=== PATIENT | female | born 1965 | race Caucasian/White ===

== ENCOUNTER 2019-02-13 09:57 | Emergency (ER) | payer OTHER ==
[~2019-02-13] VITALS: Ht 162.6 cm; Wt 79.4 kg
[~2019-02-13 09:57] MED LIST: Ativan0.5 MG PO; CONEST.625 PO; CONEST.9 PO; Crutch1 EACH MISC; DOCSEN PO; DULO60 PO; ELET40TA PO; HYDACE10B PO; HYDACE5 PO; HYDMOR4 PO; IBUP600 PO; IBUP800 PO; LEVO750 PO; META400 PO; NAPR500 PO; Norco 10-325 T1 EACH PO; OXYACE5T PO; SULTRIDS PO; TEMA15 PO; TRAM50 PO; VICODIN HP 10-1 EACH PO
[2019-02-13] MEDS ORDERED: ONDA4ODT MM (11:32)
== END 2019-02-13 12:24 | disposition home or self-care (01) ==
LOC: ER 09:57
DX: R51 Headache (principal); F17.200 Nicotine dependence, unspecified, uncomplicated; Z87.01 Personal history of pneumonia (recurrent); Z79.899 Other long term (current) drug therapy
CPT/HCPCS: 96361; 96374; 96375; 99283-25; J0780; J1200; J1885; J7120

== ENCOUNTER 2019-03-25 16:04 | Emergency (ER) | payer OTHER ==
[~2019-03-25] VITALS: Ht 162.6 cm; Wt 79.4 kg
[~2019-03-25 16:04] MED LIST changes: +ONDA4ODT MM
[2019-03-25] MEDS ORDERED: GABA100 PO (17:45)
[2019-03-25] MEDS ORDERED: Metformin HCl1000 MG (17:46)
[2019-03-25] MEDS ORDERED: SYNTHROID75 MCG PO (17:46)
[2019-03-25] MEDS ORDERED: DULO30 PO (17:46)
[2019-03-25] MEDS ORDERED: Cheratussin AC118 ML PO (18:19)
[2019-03-25] MEDS ORDERED: Zithromax250 MG PO (18:19)
== END 2019-03-25 19:03 | disposition home or self-care (01) ==
LOC: ER 16:04
DX: J44.1 Chronic obstructive pulmonary disease with (acute) exacerbation (principal); M79.644 Pain in right finger(s); Z79.899 Other long term (current) drug therapy; Z79.84 Long term (current) use of oral hypoglycemic drugs; F17.200 Nicotine dependence, unspecified, uncomplicated; G43.909 Migraine, unspecified, not intractable, without status migrainosus; W23.1XXA Caught, crushed, jammed, or pinched between stationary objects, initial encounter
CPT/HCPCS: 29130; 71046; 73130; 99283-25

== ENCOUNTER 2019-04-24 17:53 | Emergency (ER) | payer OTHER ==
[~2019-04-24] VITALS: Ht 162.6 cm; Wt 77.1 kg
[~2019-04-24 17:53] MED LIST changes: +Cheratussin AC118 ML PO; +DULO30 PO; +GABA100 PO; +Metformin HCl1000 MG; +SYNTHROID75 MCG PO; +Zithromax250 MG PO
[2019-04-24] MEDS ORDERED: INSULANPEN SC (18:35)
[2019-04-24] MEDS ORDERED: OMEPRAZOLE20 MG PO (18:35)
[2019-04-24] MEDS ORDERED: ONDA4ODT MM (18:52)
== END 2019-04-24 19:10 | disposition home or self-care (01) ==
LOC: ER 17:53
DX: S09.90XA Unspecified injury of head, initial encounter (principal); F17.200 Nicotine dependence, unspecified, uncomplicated; Z87.01 Personal history of pneumonia (recurrent); Z79.4 Long term (current) use of insulin; W06.XXXA Fall from bed, initial encounter
CPT/HCPCS: 99283; A9270

== ENCOUNTER 2021-01-17 23:55 | Emergency (ER) | payer OTHER ==
[~2021-01-17] VITALS: Ht 162.6 cm; Wt 79.4 kg
[~2021-01-17 23:55] MED LIST changes: +ACET500 PO; +INSULANPEN SC; +METH10 PO; +OMEPRAZOLE20 MG PO; +Tamiflu75 MG PO
[2021-01-18] MEDS ORDERED: Premarin0.3 MG PO (00:07)
[2021-01-18] MEDS ORDERED: BASAGLAR K100 UNIT/8 (00:07)
[2021-01-18] MEDS ORDERED: ESTRADIOL42.5 GM VAG (00:07)
[2021-01-18] MEDS ORDERED: CYCLOBENZAPRINE (00:07)
[2021-01-18] MEDS ORDERED: Ventolin/Prove6.7 GM (00:08)
[2021-01-18] MEDS ORDERED: DULOXETINE HCL60 M1 PO (00:08)
== END 2021-01-18 01:56 | disposition home or self-care (01) ==
LOC: ER 23:55
DX: B34.9 Viral infection, unspecified (principal); F17.200 Nicotine dependence, unspecified, uncomplicated; Z79.899 Other long term (current) drug therapy; Z20.822 Contact with and (suspected) exposure to COVID-19
CPT/HCPCS: 99283

== ENCOUNTER → 2021-11-24 | Outpatient (CLI) | payer OTHER ==
[~2021-11-24] MED LIST changes: +BASAGLAR K100 UNIT/8; +CYCLOBENZAPRINE; +DULOXETINE HCL60 M1 PO; +ESTRADIOL42.5 GM VAG; +Ferrous Sulfat325 MG PO; +PEPCID40 MG PO; +Premarin0.3 MG PO; +Ventolin/Prove6.7 GM
[2021-12-01 07:09] LABS: COTININE <10.0 ng/mL (.); NICOTINE <10.0 ng/mL (.)
== END ==
LOC: LAB SHORT 15:10 → LAB 15:10
PROVIDERS: Surgery
DX: F17.200 Nicotine dependence, unspecified, uncomplicated (principal)
CPT/HCPCS: G0480

== ENCOUNTER 2021-12-29 06:13 | Day surgery (SDC) | payer OTHER ==
[~2021-12-29] VITALS: Ht 162.6 cm; Wt 87.5 kg
[~2021-12-29 06:13] MED LIST changes: +ATOR40TA PO; +ESCI20 PO; +GABA300 PO; +Glucophage 850850 MG PO; +LEVSOD75 PO; +NARCAN4 M1; +OMEP20ER PO; +RIZATRIPTAN10 MG SL; +SYMBICORT 80-10.2 GM
== END 2021-12-29 08:14 | disposition home or self-care (01) ==
LOC: ORSCSDS 06:13 → ORSCMMR 07:30 → ORSCSDS 08:00 → ORSCMMR 08:00 → ORSCSDS 08:14
PROVIDERS: Surgery
PROC: 0DB68ZX Excision of Stomach, Via Natural or Artificial Opening Endoscopic, Diagnostic (ICD-10-PCS; principal; 2021-12-29 07:30)
DX: K21.9 Gastro-esophageal reflux disease without esophagitis (principal); R11.2 Nausea with vomiting, unspecified; J44.9 Chronic obstructive pulmonary disease, unspecified; F41.9 Anxiety disorder, unspecified; E11.9 Type 2 diabetes mellitus without complications; E03.9 Hypothyroidism, unspecified; K44.9 Diaphragmatic hernia without obstruction or gangrene; G47.33 Obstructive sleep apnea (adult) (pediatric); F32.A Depression, unspecified; E66.9 Obesity, unspecified; Z68.33 Body mass index [BMI] 33.0-33.9, adult; F19.11 Other psychoactive substance abuse, in remission; Z87.891 Personal history of nicotine dependence; Z79.4 Long term (current) use of insulin; Z79.899 Other long term (current) drug therapy
CPT/HCPCS: 82947; 88305; 88342; A9270; J2704; J7120

== ENCOUNTER → 2022-04-10 | Outpatient (CLI) | payer OTHER ==
[2022-04-10 19:19] LABS: Percent Saturation 15.6 % (15.0-50.0)
== END | disposition home or self-care (01) ==
LOC: LAB SHORT 14:28 → LAB 14:28
PROVIDERS: Internal Medicine Hematology & Oncology
DX: D50.0 Iron deficiency anemia secondary to blood loss (chronic) (principal); E53.9 Vitamin B deficiency, unspecified
CPT/HCPCS: 82607; 82728; 82746; 83540; 83550

== ENCOUNTER 2022-07-06 11:50 | Emergency (ER) | payer OTHER ==
[~2022-07-06] VITALS: Ht 162.6 cm; Wt 88.5 kg
[2022-07-06 12:40] LABS: BASOPHILS ABSOLUTE AUTO 0.06 K/mm3 (0.00-0.23); BASOPHILS PERCENT AUTO 1 % (0-2); EOSINOPHILS ABSOLUTE AUTO 0.17 K/mm3 (0.00-0.68); EOSINOPHILS PERCENT AUTO 3 % (0-6); Hematocrit 37.5 % (33.0-51.0); Hemoglobin 12.1 g/dL (11.5-16.0); IMMATURE GRAN ABSOLUTE AUTO 0.02 K/mm3 (0.00-0.10); IMMATURE GRAN PERCENT AUTO 0 % (0-1); LYMPHOCYTES ABSOLUTE AUTO 2.34 K/mm3 (0.84-5.20); LYMPHOCYTES PERCENT AUTO 37 % (21-46); MONOCYTES ABSOLUTE AUTO 0.32 K/mm3 (0.16-1.47); MONOCYTES PERCENT AUTO 5 % (4-13); Mean Corpuscular HGB 27.4 pg (26.0-34.0); Mean Corpuscular HGB Conc 32.3 g/dL (31.5-36.5); Mean Corpuscular Volume 85 fL (80-100); Mean Platelet Volume 9.8 fL (9.1-12.4); NEUTROPHILS ABSOLUTE AUTO 3.47 K/mm3 (1.96-9.15); NEUTROPHILS PERCENT AUTO 54 % (41-73); Platelet Count 266 K/mm3 (150-400); RDW Coefficient Variation 13.6 % (11.7-14.2); Red Blood Cell Count 4.41 M/mm3 (3.80-5.20); White Blood Cell Count 6.38 K/mm3 (4.00-11.30)
[2022-07-06 13:01] LABS: Albumin, Blood 3.5 g/dL (3.4-5.0); Albumin/Globulin Ratio 0.9 (0.8-1.8); Bilirubin, Total 0.3 mg/dL (0.1-1.0); Bun/Creatinine Ratio 17.3 (12.0-20.0); Calcium, Blood 8.7 mg/dL (8.5-10.1); Creatinine, Blood 0.87 mg/dL (0.40-1.00); Globulin, Blood 3.7 g/dL (2.2-4.0); Potassium, Blood 4.7 mmol/L (3.5-5.5); Total Protein, Blood 7.2 g/dL (6.4-8.2)
[2022-07-06] MEDS ORDERED: CEPH500 PO (15:25)
== END 2022-07-06 15:37 | disposition home or self-care (01) ==
LOC: ER 11:50
PROVIDERS: Physician Assistant
DX: L03.115 Cellulitis of right lower limb (principal); L03.116 Cellulitis of left lower limb; F17.200 Nicotine dependence, unspecified, uncomplicated; Z79.899 Other long term (current) drug therapy; Z79.890 Hormone replacement therapy; Z79.84 Long term (current) use of oral hypoglycemic drugs
CPT/HCPCS: 36415; 80053; 83880; 85025; 93005; 93010; 93970

== ENCOUNTER 2022-10-21 19:01 | Emergency (ER) | payer OTHER ==
[~2022-10-21] VITALS: Ht 162.6 cm; Wt 90.7 kg
[~2022-10-21 19:01] MED LIST changes: +CEPH500 PO
[2022-10-21 22:30] VITALS: BP 146/86
== END 2022-10-21 22:44 | disposition home or self-care (01) ==
LOC: ER 19:01
DX: R51.9 Headache, unspecified (principal); H92.01 Otalgia, right ear; E11.9 Type 2 diabetes mellitus without complications; F17.200 Nicotine dependence, unspecified, uncomplicated; Z79.51 Long term (current) use of inhaled steroids; Z79.84 Long term (current) use of oral hypoglycemic drugs
CPT/HCPCS: 96374; 96375; 99283-25; J0780; J1200; J1885; J7030

== ENCOUNTER → 2022-11-22 | Outpatient (CLI) | payer OTHER ==
[2022-11-22 19:53] LABS: Percent Saturation 16.4 % (15.0-50.0)
== END | disposition home or self-care (01) ==
LOC: LAB SHORT 16:07 → LAB 16:07
PROVIDERS: Internal Medicine Hematology & Oncology
DX: D50.0 Iron deficiency anemia secondary to blood loss (chronic) (principal)
CPT/HCPCS: 82728; 83540; 83550

== ENCOUNTER → 2023-02-05 | Outpatient (CLI) | payer OTHER | LOC: LAB SHORT 17:20 → LAB 17:20 | DX: E11.9 Type 2 diabetes mellitus without complications (principal) | CPT/HCPCS: 82043 ==

== ENCOUNTER 2023-02-19 06:18 | Observation (INO) | payer OTHER ==
[~2023-02-19] VITALS: Ht 160 cm; Wt 84.5 kg
[2023-02-19] VITALS (19 sets, daily range): BP systolic 125–151; BP diastolic 80–97
[2023-02-19] MEDS ORDERED: PANT20 PO (06:32)
[2023-02-19] MEDS ORDERED: METH40 PO (06:34)
--- NOTE | 2023-02-19 08:05 | NUR ---
02/19/23 0805 Anu Santamaria NO PREOP ANTIBIOTICS ORDERED PER .
--- NOTE | 2023-02-19 15:49 | NUR ---
PT POST HIATAL HERNIA REPAIR WITH FUNDOPLICATION PT ARRIVED IN THE ROOM AT 1130A, REPORT RECEIVED FROM RO HARRISON FROM PACU. PT REMAINED DROWSY UPON ARRIVAL WAKES UP AND WAS ABLE TO ANSWER QUESTIONS APPROPRIATELY. PT HAS 4 ABD INCISION SITES MIKEL CDI, ABD TENDER HYPOACTIVE BT PT WAS C/O NAUSEA MEIDCATED X1, PT KEPT NPO 4 HRS POST OP, PT HAS BEEN SLEEPING SINCE TRANSFER WAKES UP WTIH VERBAL STIMULI. NS STARTED AT 75MLS/HR. TO START PT ON CLEAR LIQUID DIET FOR DINNER TOLERATED THEN ADVANCE TO FULL LIQUID IN AM. VITALS HAS BEEN STABLE. NO OTHER ISSUES AT THIS TIME, CALL LIGHTS IN REACH WILL CONTINUE TO MONITOR
--- NOTE | 2023-02-19 18:22 | NUR ---
PT SUMMARY: PT DIET RESUMED 4 HRS POST OP ON CLEAR LIQUIDS, PT OFFERED ZOFRAN BEFORE EATING DINNER TO PREVENT NAUSEA, ZOFRAN WAS GIVEN WHEN PT STARTED FINISHING UP HER JELLO PT STARTED C/O OF GAGGING PT STATED "ITS COMING BACK UP" PT DENIES NAUSEA JUST REGURGITATION, INDUSTRIAL INSULATOR CALLED DR DAI TO ORDER REGLAN ONE TIME DOSE AWAITING FOR ORDER AT THIS TIME. PT HAD SMALL AMOUNT OF EMESIS (JELLO) MOSTLY SPIT, GAGGING EVENTUALLY HAD STOPPED. PT NOW SITTING ON THE SIDE OF THE BED PT STATED SHE FEELS MUCH BETTER SITTING UP. PT GOT UP IN THE BEDSIDE COMMODE SBA WAS C/O REALLY BAD PAIN WHEN GETTING BACK IN BED OXY 5MG WAS GIVEN AND WAS EFFECTIVE. PT HASNT PASSED GAS OF TIME EXPECTED. NO OTHER ISSUES AT THIS TIME, VITALS REMAINED STABLE. WILL REPORT TO ONCOMING SHIFT
[2023-02-20 03:58] VITALS: BP 120/72
--- NOTE | 2023-02-20 04:28 | NUR ---
SHIFT SUMMARY PT S/P HERNIA REPAIR, SHE HAS RESTED MOST OF THE NIGHT, APPEARED SLEEPING AND COMFORTABLE DURING ROUNDS. PT VERY PAINFUL WITH MOVEMENT. MEDS GIVEN PER EMAR WITH AFFECT. LAP SITES X4 C/D/I. ABD SOFT, TENDER. BOWEL TONES HYPOACTIVE. PT STILL HAS VERY LITTLE APPETITE, AND FEARS GETTING NAUSEATED AGAIN LIKE SHE DID DURING DAYSHIFT. NO VOMITTING THIS SHIFT. IVF INFUSING PER ORDERS. PT HAS VOIDED THIS SHIFT. NO ACUTE CHANGES OVERNIGHT, BED IN LOWEST POSITION, CALL LIGHT WITHIN REACH.
[2023-02-20 05:25] LABS: Hematocrit 39.3 % (33.0-51.0); Hemoglobin 12.4 g/dL (11.5-16.0); Mean Corpuscular HGB 26.8 pg (26.0-34.0); Mean Corpuscular HGB Conc 31.6 g/dL (31.5-36.5); Mean Corpuscular Volume 85 fL (80-100); Mean Platelet Volume 11.6 fL (9.1-12.4); Platelet Count 199 K/mm3 (150-400); RDW Coefficient Variation 14.3 % (11.7-14.2); RDW Standard Deviation 44.3 fL (35.1-46.3); Red Blood Cell Count 4.62 M/mm3 (3.80-5.20); White Blood Cell Count 8.34 K/mm3 (4.00-11.30)
[2023-02-20 07:16] VITALS: BP 124/75
--- NOTE | 2023-02-20 15:03 | NUR ---
Pt. is awake in bed and welcomes my visit. Pt. displays evidence of great discomfort. With empathy and a calming presence faciltate a brief life review. Pt. verbalizes that she had freinds visiting earlier in the day. Pt. continues to display evidence of pain and discomfort so this category consultant kept the visit short. Prayed with Pt. Pt. verbalized gratitude for the spiritual care visit.
[2023-02-20 15:55] VITALS: BP 131/73
--- NOTE | 2023-02-20 18:10 | NUR ---
SHIFT SUMMARY: POD 1 LAP PARAESOPHAGEAL HERNIA REPAIR WITH FUNDOPLICATION PATIENT IS A&OX4. VS ARE WNL AND IS ON RA. PAIN IS MANAGED WITH 10 OXY AND HER METHADOSE. HER ABD HAS X4 LAP SITES THAT ARE C/D/I. SHE IS PASSING GAS AND IS VOIDING. SHE IS A SBA WITH FWW TO THE BATHROOM AND BACK TO BED. SHE IS TOLERATING SMALL AMOUNTS OF PO INTAKE. PATIENT WAS SLEEPY FOR MOST OF THE DAY, AND WHEN THIS NURSE TRIED TO ENCOURAGE WALKING IN THE HALLWAYS EITHER SHE WAS TOO PAINFUL OR TOO SLEEPY. THIS NURSE ENCOURAGED PATIENT TO WALK LATER TONIGHT IF POSSIBLE AND PATIENT RESPONDED "I WILL TRY". SHE IS LAYING IN BED WITH CALL LIGHT IN REACH.
[2023-02-20 19:16] VITALS: BP 119/69
[2023-02-21 02:47] VITALS: BP 151/74
[2023-02-21 03:29] VITALS: BP 113/70
--- NOTE | 2023-02-21 05:51 | NUR ---
SHIFT SUMMARY NO ACUTE CHANGES TO REPORT OVERNIGHT, PT STILL PAINFUL WITH MOVEMENT. PT HAS BEEN DROWSY, APPEARED SLEEPING DURING NURSE ROUNDING. LAP SITES TO ABD C/D/I, PT PASSING GAS AND CONTINUES TO TOLEATE PO INTAKE. VITALS STABLE. BED IN LOWEST POSITION, CALL LIGHT WITHIN REACH.
[2023-02-21 07:16] VITALS: BP 150/86
[2023-02-21] MEDS ORDERED: OXYC5 PO (12:55)
--- NOTE | 2023-02-21 13:12 | NUR ---
DISCHARGE NOTE: PATIENT WAS EDUCATED ON DISCHARGE INSTRUCTIONS. SHE VERBALIZED UNDERSTANDING OF INSTRUCTIONS AND HAD NO FURTHER QUESTIONS AT THIS TIME. BOTH OF HER IV'S WERE TAKEN OUT AND WNL. PAIN IS MANAGED WITH ORAL PAIN MEDICATIONS. HER ABD HAS 4 LAP SITES WITH WOUND GLUE THAT ARE C/D/I. DENIES ANY NAUSEA OR VOMITING. SHE IS TOLERATING HER FULL LIQUIDS DIET WITH NO MEAT/CARBS/CARBONATED DRINKS/SWEETS. PATIENT IS VOIDING AND PASSING GAS. PATIENT IS A SBA IN THE ROOM. SHE WAS ABLE TO SHOWER AND IS NOW DRESSED WITH HER PERSONAL ITEMS IN THE ROOM GATHERED. PATIENT IS AWAITING FOR HER RIDE TO COME PICK HER UP.
--- NOTE | 2023-02-21 14:22 | NUR ---
DISCHARGE NOTE: PATIENT IS BEING WHEELCHAIRED OUT TO HER FRIENDS CAR TO BE TAKEN HOME. PATIENT HAS ALL OF HER PERSONAL BELONGINGS WITH HER.
== END 2023-02-21 14:31 | disposition home or self-care (01) ==
LOC: SURS 06:18 → PRE IP 06:18 → SURS 07:31
PROVIDERS: ADMIT Surgery
PROC: 8E0W4CZ Robotic Assisted Procedure of Trunk Region, Percutaneous Endoscopic Approach (ICD-10-PCS; principal; 2023-02-19 07:30)
PROC: 0BQT4ZZ Repair Diaphragm, Percutaneous Endoscopic Approach (ICD-10-PCS; principal; 2023-02-19 07:30)
DX: K21.9 Gastro-esophageal reflux disease without esophagitis (principal); K44.9 Diaphragmatic hernia without obstruction or gangrene; E11.9 Type 2 diabetes mellitus without complications; E78.5 Hyperlipidemia, unspecified; E03.9 Hypothyroidism, unspecified; F32.9 Major depressive disorder, single episode, unspecified
CPT/HCPCS: 36415; 82947; 85027; 94640; 94664; 94760; 96372; 96374; 96375; 96376; A9270; G0378; J1100; J1650; J1815; J2250; J2371; J2405; J2704; J2765; J3010; J7120

== ENCOUNTER 2023-10-07 18:53 | Emergency (ER) | payer OTHER ==
[~2023-10-07] VITALS: Ht 162.6 cm; Wt 71.7 kg
[~2023-10-07 18:53] MED LIST changes: +METH40 PO; +OXYC5 PO; +PANT20 PO
[2023-10-07] MEDS ORDERED: Ondansetron HCl 2 MG / ML 2ML Vial IV ONE (19:35)
[2023-10-07] MEDS ORDERED: HYDROmorphone HCl/Pf 1MG SYR IV ONE (19:35)
[2023-10-07] MEDS ORDERED: NS 1,000 ML IV SCH (19:35)
[2023-10-07 19:44] LABS: BASOPHILS ABSOLUTE AUTO 0.05 K/mm3 (0.00-0.23); BASOPHILS PERCENT AUTO 1 % (0-2); EOSINOPHILS ABSOLUTE AUTO 0.17 K/mm3 (0.00-0.68); EOSINOPHILS PERCENT AUTO 2 % (0-6); Hematocrit 39.2 % (33.0-51.0); Hemoglobin 12.7 g/dL (11.5-16.0); IMMATURE GRAN ABSOLUTE AUTO 0.01 K/mm3 (0.00-0.10); IMMATURE GRAN PERCENT AUTO 0 % (0-1); LYMPHOCYTES ABSOLUTE AUTO 2.95 K/mm3 (0.84-5.20); LYMPHOCYTES PERCENT AUTO 43 % (21-46); MONOCYTES ABSOLUTE AUTO 0.36 K/mm3 (0.16-1.47); MONOCYTES PERCENT AUTO 5 % (4-13); Mean Corpuscular HGB 27.7 pg (26.0-34.0); Mean Corpuscular HGB Conc 32.4 g/dL (31.5-36.5); Mean Corpuscular Volume 85 fL (80-100); Mean Platelet Volume 11.4 fL (9.1-12.4); NEUTROPHILS PERCENT AUTO 49 % (41-73); Platelet Count 226 K/mm3 (150-400); RDW Coefficient Variation 13.1 % (11.7-14.2); RDW Standard Deviation 40.6 fL (35.1-46.3); Red Blood Cell Count 4.59 M/mm3 (3.80-5.20); White Blood Cell Count 6.94 K/mm3 (4.00-11.30)
[2023-10-07 19:58] LABS: Source, Urine Clean Catch
[2023-10-07 20:08] LABS: Bilirubin, Urine Neg (Neg); Blood, Urine 2+ (Neg); Glucose Qualitative, Urine 2+ (Neg); Ketones, Urine 1+ (Neg); Leukocyte Esterase, Urine 1+ (Neg); Nitrite, Urine Neg (Neg); Protein, Urine Neg (Neg); Urobilinogen, Urine NORM (Normal)
[2023-10-07 20:14] LABS: Appearance, Urine Clear (Clear); Color, Urine Yellow (P-Yellow)
[2023-10-07 20:18] LABS: Amorphous Light (0-Heavy); Bacteria Few /hpf; Red Blood Cells, Urine 0-2 /hpf (0-2); Squamous Epithelial Cells Few /hpf (Few); White Blood Cells, Urine 0-2 /hpf (0-5)
[2023-10-07 20:31] LABS: Albumin, Blood 3.6 g/dL (3.4-5.0); Albumin/Globulin Ratio 1.1 (0.8-1.8); Bilirubin, Total 0.2 mg/dL (0.1-1.0); Bun/Creatinine Ratio 25.3 (12.0-20.0); Calcium, Blood 9.3 mg/dL (8.5-10.1); Creatinine, Blood 0.95 mg/dL (0.40-1.00); Globulin, Blood 3.4 g/dL (2.2-4.0); Potassium, Blood 3.8 mmol/L (3.5-5.5)
[2023-10-07] MEDS ORDERED: LORazepam 2 MG/ML 1ML Injection IV ONE (20:55)
[2023-10-07 22:24] VITALS: BP 127/82
== END 2023-10-07 22:25 | disposition home or self-care (01) ==
LOC: ER 18:53
PROVIDERS: Emergency Medicine
DX: R10.31 Right lower quadrant pain (principal); E11.9 Type 2 diabetes mellitus without complications; Z79.890 Hormone replacement therapy; Z79.51 Long term (current) use of inhaled steroids; Z79.84 Long term (current) use of oral hypoglycemic drugs; Z79.899 Other long term (current) drug therapy
CPT/HCPCS: 74177; 80053; 81001; 83605; 83690; 85025; 96361; 96374-59; 96375; 99285-25; J1170; J2405; J7030; Q9967

== ENCOUNTER → 2024-02-14 | Outpatient (CLI) | payer OTHER ==
[2024-02-14 19:30] LABS: Adenovirus F 40/41 Not Detected (NOT DETECT); Astrovirus Not Detected (NOT DETECT); Campylobacter Sp Not Detected (NOT DETECT); Cryptosporidium Not Detected (NOT DETECT); Cyclospora Cayetanensis Not Detected (NOT DETECT); E. Coli O157 Not Detected (NOT DETECT); Entamoeba Histolytica Not Detected (NOT DETECT); Enteroaggregative E. coli-EAEC Not Detected (NOT DETECT); Enteropathogenic E. coli-EPEC Not Detected (NOT DETECT); Enterotoxigenic E. coli-ETEC Not Detected (NOT DETECT); Giardia Lamblia Not Detected (NOT DETECT); Norovirus GI/GII Not Detected (NOT DETECT); Plesiomonas Shigelloides Not Detected (NOT DETECT); Rotavirus A Not Detected (NOT DETECT); Salmonella Sp Not Detected (NOT DETECT); Sapovirus Not Detected (NOT DETECT); Shiga Toxin-prod E. coli-STEC Not Detected (NOT DETECT); Shigella/Enteroin E. coli-EIEC Not Detected (NOT DETECT); Vibrio Cholerae Not Detected (NOT DETECT); Vibrio Sp Not Detected (NOT DETECT); Yersinia Enterocolitica Not Detected (NOT DETECT)
[2024-02-18 16:14] LABS: CALPROTECTIN,FECAL 58 ug/g (<=49)
[2024-02-18 16:24] LABS: PANCREATIC ELASTASE,FECAL 38 ug/g (>=100)
== END ==
LOC: LAB SHORT 14:46 → LAB 14:46
PROVIDERS: Family Medicine
DX: R19.7 Diarrhea, unspecified (principal)
CPT/HCPCS: 82653; 83993; 87507

== ENCOUNTER 2024-08-17 20:47 | Emergency (ER) | payer OTHER ==
[~2024-08-17] VITALS: Ht 162.6 cm; Wt 68.0 kg
[2024-08-17 21:10] LABS: BASOPHILS ABSOLUTE AUTO 0.05 K/mm3 (0.00-0.23); BASOPHILS PERCENT AUTO 1 % (0-2); EOSINOPHILS ABSOLUTE AUTO 0.14 K/mm3 (0.00-0.68); EOSINOPHILS PERCENT AUTO 2 % (0-6); Hematocrit 38.7 % (33.0-51.0); Hemoglobin 12.4 g/dL (11.5-16.0); IMMATURE GRAN ABSOLUTE AUTO 0.01 K/mm3 (0.00-0.10); IMMATURE GRAN PERCENT AUTO 0 % (0-1); LYMPHOCYTES ABSOLUTE AUTO 1.63 K/mm3 (0.84-5.20); LYMPHOCYTES PERCENT AUTO 27 % (21-46); MONOCYTES ABSOLUTE AUTO 0.44 K/mm3 (0.16-1.47); MONOCYTES PERCENT AUTO 7 % (4-13); Mean Corpuscular HGB 27.9 pg (26.0-34.0); Mean Corpuscular Volume 87 fL (80-100); NEUTROPHILS ABSOLUTE AUTO 3.81 K/mm3 (1.96-9.15); NEUTROPHILS PERCENT AUTO 63 % (41-73); Platelet Count 255 K/mm3 (150-400); RDW Coefficient Variation 13.4 % (11.7-14.2); RDW Standard Deviation 42.9 fL (35.1-46.3); Red Blood Cell Count 4.44 M/mm3 (3.80-5.20); White Blood Cell Count 6.08 K/mm3 (4.00-11.30)
[2024-08-17 21:44] LABS: Albumin, Blood 3.6 g/dL (3.4-5.0); Bilirubin, Total 0.5 mg/dL (0.1-1.0); Globulin, Blood 3.7 g/dL (2.2-4.0); Potassium, Blood 4.2 mmol/L (3.5-5.5); Total Protein, Blood 7.3 g/dL (6.4-8.2)
[2024-08-17 21:55] LABS: Influenza A, PCR NEGATIVE (NEGATIVE); Influenza B, PCR NEGATIVE (NEGATIVE); Resp Syncytial Virus, PCR NEGATIVE (NEGATIVE); SARS-Cov-2 (COVID-19) PCR, MMC NEGATIVE (NEGATIVE)
[2024-08-17 23:33] LABS: C-Reactive Protein, High Sens. 3.86 mg/dL (0.000-3.000)
[2024-08-17] MEDS ORDERED: Mag Hydrox/AL Hydrox/Simeth 30 ML UDC PO ONE (23:55)
[2024-08-17] MEDS ORDERED: Ipratropium Bromide INH 0.02% 0.5 mg/2.5ML Vial INH SCH (23:55)
[2024-08-17] MEDS ORDERED: Lidocaine 2% Viscous Soln 15 ML UDC PO ONE (23:55)
[2024-08-17] MEDS ORDERED: Albuterol 2.5 MG/3 ML VIAL INH SCH (23:55)
[2024-08-18] MEDS ORDERED: Ketorolac Tromethamine 15mg Vial IM ONE (00:30)
[2024-08-18] MEDS ORDERED: Ketorolac Tromethamine 15mg Vial IV ONE (00:35)
[2024-08-18] MEDS ORDERED: OMEP20ER PO (01:07)
[2024-08-18 01:28] VITALS: BP 117/84
== END 2024-08-18 01:30 | disposition home or self-care (01) ==
LOC: ER 20:47
PROVIDERS: Student in an Organized Health Care Education/Training Program
DX: J44.9 Chronic obstructive pulmonary disease, unspecified (principal); R10.13 Epigastric pain; E78.5 Hyperlipidemia, unspecified; E11.9 Type 2 diabetes mellitus without complications; F17.200 Nicotine dependence, unspecified, uncomplicated; G47.33 Obstructive sleep apnea (adult) (pediatric)
CPT/HCPCS: 0241U; 71046; 80053; 83690; 84484; 85025; 85379; 86141; 93005; 93010; 94640; 94644; 94664; 96372-59; 96374; 99285-25; A9270; J1885